=== PATIENT | female | born 1970 | race African-American/Black ===

== ENCOUNTER 2019-09-27 12:08 | Inpatient (IN) | payer OTHER ==
[2019-09-27 13:08] VITALS: BMI 17.6
--- NOTE | 2019-09-27 13:29 | HP ---
CIWA Score Nausea/Vomitin-Int. Nausea w/Dry Heave Muscle Tremors: 1-None Visible, but [place] Anxiety: 2 Agitation: 4-Moderately Restless Paroxysmal Sweats: 1-Minimal Palms Moist Orientation: 0-Oriented Tacttile Disturbances: 0-None Auditory Disturbances: 0-None Visual Disturbances: 0-None Headache: 2-Mild CIWA-Ar Total Score: 14 - Admission Criteria OASAS Guidelines: Admission for Medically Managed Detox: Requires at least one of the followin. CIWA greater than 12 2. Seizures within the past 24 hours 3. Delirium tremens within the past 24 hours 4. Hallucinations within the past 24 hours 5. Acute intervention needed for co occurring medical disorder 6. Acute intervention needed for co occurring psychiatric disorder 7. Severe withdrawal that cannot be handled at a lower level of care (continued vomiting, continued diarrhea, abnormal vital signs) requiring intravenous medication and/or fluids 8. Admitting History and Physical - Admission Chief Complaint: "I want to stop drinking." History of Present Illness: 48 year old female with history of detox and rehab at [facility] 3 months ago in 2019 but relapsed 3 days right after rehab. She is driking 10 beers per day, last drank at 7PM yesterday. Denies blackout or withdrawal seizures. She smokes 1/2 ppd ciggarettes since age 22. She admits to crack use daily at $100 daily. PMH: HTN just took meds now. Psurg: None except tubal ligation in 2013 Meds: Amlodipine 10mg daily and HCTZ 25 mg daily She is homeless and has poor support systems. Her risk of relapse is high and morbidity for continued drinking is high. History Source: Patient Limitations to Obtaining History: No Limitations - Past Medical History Cardiovascular: Yes: HTN - Past Surgical History Past Surgical History: Yes: None - Advance Directives Advance Directives: No: Living Will, Health Care Proxy, DNR - Smoking History Smoking history: Current every day smoker Have you smoked in the past 12 months: Yes Aproximately how many cigarettes per day: 10 - Alcohol/Substance Use Hx Alcohol Use: Yes (10 beers daily) Number of Drinks Daily: 10 History of Substance Use: reports: Cocaine Admission ROS [facility] - [facility] Allergies/Adverse Reactions: Allergies Allergy/AdvReac Type Severity Reaction Status Date / Time aspirin Allergy Nausea Verified 09/27/19 13:01 Patient History - Smoking Cessation Smoking history: Current every day smoker Have you smoked in the past 12 months: Yes Aproximately how many cigarettes per day: 10 Hx Chewing Tobacco Use: No Initiated information on smoking cessation: Yes 'Breaking Loose' booklet given: 09/27/19 - Substances abused Alcohol Substance route: Oral Frequency: Daily Amount used: 9 beers Age of first use: 21 Date of last use: 09/26/19 Cocaine Substance route: Smoking Frequency: Daily Amount used: $100 Age of first use: 27 Date of last use: 09/25/19 Admission Physical Exam [facility] - Vital Signs Vital Signs: Vital Signs - 24 hr 09/27/19 12:56 Temperature 97.3 F L Pulse Rate 56 L Respiratory 18 Rate Blood Pressure 160/102 H - Physical General Appearance: Yes: Mild Distress, Thin, Tremorous, Irritable HEENTM: Yes: EOMI, Hearing grossly Normal, Normal ENT Inspection, Normocephalic , Normal Voice, DENIS, Pharynx Normal, Tm's normal Respiratory: Yes: Chest Non-Tender, Lungs Clear, Normal Breath Sounds, No Respiratory Distress, No Accessory Muscle Use Neck: Yes: No masses,lesions,Nodules, Supple, Trachea in good position Breast: Yes: Breast Exam Deferred Cardiology: Yes: Regular Rhythm, Regular Rate, S1, S2 Abdominal: Yes: Normal Bowel Sounds, Non Tender, Flat, Soft Genitourinary: Yes: Within Normal Limits Back: Yes: Normal Inspection Musculoskeletal: Yes: full range of Motion, Gait Steady, Pelvis Stable Extremities: Yes: Normal Capillary Refill, Normal Inspection, Normal Range of Motion, Non-Tender Neurological: Yes: database developer II-XII NML intact, Fully Oriented, Alert, Motor Strength 5/5, Normal Mood/Affect, Normal Response Integumentary: Yes: Normal Color, Warm Lymphatic: Yes: Within Normal Limits - Diagnostic (1) Alcohol dependence with withdrawal Current Visit: Yes Status: Acute (2) Hypertension Current Visit: Yes Status: Acute Cleared for Admission [facility] - Detox or Rehab [facility] Level of Care: Medically Managed Detox Regimen/Protocol: Valium Claeared for Rehab Admission: No Screened but not Admitted - Documentation of Visit Screened but not Admitted: No Breathalyzer - Breathalyzer Breathalyzer: 0 (last used yesterday at 7 PM) Urine Drug Screen - Test Device Lot number: [id number] Expiration date: 07/20/21 - Control Is test valid?: Yes - Results Drug screen NEGATIVE: Yes Urine drug screen results: DANIKA-Cocaine Inpatient Rehab Admission - Rehab Decision to Admit Inpatient rehab admission?: No
[2019-09-27] MEDS ORDERED: BISMUTH SUBSALICYLATE 524 MG/30 ML UD PO PRN (13:33)
[2019-09-27] MEDS ORDERED: MELATONIN 5 MG TABLETS PO PRN (13:33)
[2019-09-27] MEDS ORDERED: MENTHOL/PHENOL 1 EACH UD MM PRN (13:33)
[2019-09-27] MEDS ORDERED: IBUPROFEN 400 MG TABLET (FP) PO PRN (13:33)
[2019-09-27] MEDS ORDERED: MAG HYDROX/AL HYDROX/SIMETH 30 ML UNIT-DOSE CUP PO PRN (13:33)
[2019-09-27] MEDS ORDERED: diazePAM 5 MG TABLET PO PRN (13:33)
[2019-09-27] MEDS ORDERED: MAGNESIUM HYDROX 2400MG/30ML ORAL SUSPENSION 30 ML CUP PO PRN (13:33)
[2019-09-27] MEDS ORDERED: ACETAMINOPHEN 325 MG TABLET (FP) PO PRN ×2 (13:33)
[2019-09-27] MEDS ORDERED: hydrOXYzine PAMOATE 25 MG CAPSULE (FP) PO PRN (13:33)
[2019-09-27] MEDS ORDERED: MAGNESIUM CITRATE 300 ML BOTTLE PO PRN (13:33)
[2019-09-27 17:46] LABS: HEMATOCRIT 31.5 % (32.4-45.2); HEMOGLOBIN 9.9 GM/dL (10.7-15.3); MCH 25.6 pg (25.7-33.7); MCHC 31.5 g/dl (32.0-36.0); MEAN CELL VOLUME 81.2 fl (80-96); MEAN PLT VOLUME 8.6 fl (7.5-11.1); PLATELET COUNT 298 K/MM3 (134-434); RBC 3.88 M/mm3 (3.60-5.2); WHITE BLOOD COUNT 3.5 K/mm3 (4.0-10.0)
[2019-09-27] MEDS: HYDROCHLOROTHIAZIDE 25 MG TABLET (FP) PO SCH (17:55)
[2019-09-27] MEDS: diazePAM 5 MG TABLET PO ONE (17:55)
[2019-09-27 17:56] LABS: ALBUMIN 2.7 g/dl (3.4-5.0); BILIRUBIN,TOTAL 0.2 mg/dL (0.2-1); CALCIUM 8.7 mg/dL (8.5-10.1); POTASSIUM 3.2 mmol/L (3.5-5.1); TOT PROT 6.3 g/dl (6.4-8.2)
[2019-09-27] MEDS: diazePAM 5 MG TABLET PO SCH ×2 (17:56→22:35)
[2019-09-27] MEDS: NICOTINE 7 MG/24 HOURS TOPICAL PATCH TD SCH (17:56)
[2019-09-27] MEDS: amLODIPine BESYLATE 10 MG TABLET (FP) PO SCH (17:56)
[2019-09-27] MEDS: THIAMINE HCL 100 MG TABLET (FP) PO SCH (22:36)
[2019-09-27] MEDS: METHOCARBAMOL 500 MG TABLET PO PRN (22:38)
[2019-09-28] MEDS: METHOCARBAMOL 500 MG TABLET PO PRN (05:26)
[2019-09-28] MEDS: diazePAM 5 MG TABLET PO SCH ×3 (05:27→22:39)
[2019-09-28] MEDS: amLODIPine BESYLATE 10 MG TABLET (FP) PO SCH (10:31)
[2019-09-28] MEDS: HYDROCHLOROTHIAZIDE 25 MG TABLET (FP) PO SCH (10:31)
[2019-09-28] MEDS: PRENATAL VITAMINS W/ FOLIC ACID TABLET (FP) PO SCH (10:31)
[2019-09-28] MEDS: NICOTINE 7 MG/24 HOURS TOPICAL PATCH TD SCH (10:31)
--- NOTE | 2019-09-28 14:14 | PN ---
S CIWA - CIWA Score Nausea/Vomitin-No Nausea/No Vomiting Muscle Tremors: None Anxiety: 3 Agitation: 1-Slight > Activity Paroxysmal Sweats: 3 Orientation: 0-Oriented Tacttile Disturbances: 0-None Auditory Disturbances: 0-None Visual Disturbances: 0-None Headache: 2-Mild CIWA-Ar Total Score: 9 S Progress Note (SOAP) Subjective: c/o sweats, anxiety, and headache. Objective: 09/28/19 14:13 Vital Signs 09/28/19 09/28/19 09/28/19 06:48 09:33 12:56 Temperature 98.5 F 98.4 F 98.9 F Pulse Rate 77 65 88 Respiratory 18 18 16 Rate Blood Pressure 148/94 131/75 134/86 Laboratory Last Values WBC 3.5 K/mm3 (4.0-10.0) L 09/27/19 13:45 RBC 3.88 M/mm3 (3.60-5.2) 09/27/19 13:45 Hgb 9.9 GM/dL (10.7-15.3) L 09/27/19 13:45 Hct 31.5 % (32.4-45.2) L 09/27/19 13:45 MCV 81.2 fl (80-96) 09/27/19 13:45 MCH 25.6 pg (25.7-33.7) L 09/27/19 13:45 MCHC 31.5 g/dl (32.0-36.0) L 09/27/19 13:45 RDW 19.0 % (11.6-15.6) H 09/27/19 13:45 Plt Count 298 K/MM3 (134-434) 09/27/19 13:45 MPV 8.6 fl (7.5-11.1) 09/27/19 13:45 Sodium 141 mmol/L (136-145) 09/27/19 13:45 Potassium 3.2 mmol/L (3.5-5.1) L 09/27/19 13:45 Chloride 106 mmol/L (98-107) 09/27/19 13:45 Carbon Dioxide 31 mmol/L (21-32) 09/27/19 13:45 Anion Gap 4 MMOL/L (8-16) L 09/27/19 13:45 BUN 8.0 mg/dL (7-18) 09/27/19 13:45 Creatinine 1.0 mg/dL (0.55-1.3) 09/27/19 13:45 Est GFR (CKD-EPI)AfAm 78.24 09/27/19 13:45 Est GFR (CKD-EPI)NonAf 67.51 09/27/19 13:45 Random Glucose 103 mg/dL (74-106) 09/27/19 13:45 Calcium 8.7 mg/dL (8.5-10.1) 09/27/19 13:45 Total Bilirubin 0.2 mg/dL (0.2-1) 09/27/19 13:45 AST 205 U/L (15-37) H 09/27/19 13:45 ALT 18 U/L (13-61) 09/27/19 13:45 Alkaline Phosphatase 61 U/L (45-117) 09/27/19 13:45 Total Protein 6.3 g/dl (6.4-8.2) L 09/27/19 13:45 Albumin 2.7 g/dl (3.4-5.0) L 09/27/19 13:45 RPR Titer Nonreactive (NONREACTIVE) 09/27/19 13:45 Labs noted. Assessment: 09/28/19 14:13 AOX3, in no respiratory distress. Full ROM, ambulating in the unit. Withdrawal symptoms. Plan: continue detox.
[2019-09-28] MEDS ORDERED: BENZOCAINE 20 % GEL TUBE MM PRN (20:49)
[2019-09-28] MEDS: IBUPROFEN 400 MG TABLET (FP) PO PRN (21:00)
[2019-09-28] MEDS: THIAMINE HCL 100 MG TABLET (FP) PO SCH (22:39)
[2019-09-29] MEDS: IBUPROFEN 400 MG TABLET (FP) PO PRN ×2 (04:31→18:41)
[2019-09-29] MEDS: diazePAM 5 MG TABLET PO SCH ×2 (06:16→17:44)
[2019-09-29] MEDS: HYDROCHLOROTHIAZIDE 25 MG TABLET (FP) PO SCH (10:26)
[2019-09-29] MEDS: amLODIPine BESYLATE 10 MG TABLET (FP) PO SCH (10:26)
[2019-09-29] MEDS: PRENATAL VITAMINS W/ FOLIC ACID TABLET (FP) PO SCH (10:26)
[2019-09-29] MEDS: NICOTINE 7 MG/24 HOURS TOPICAL PATCH TD SCH (10:27)
--- NOTE | 2019-09-29 11:37 | PN ---
S CIWA - CIWA Score Nausea/Vomitin-No Nausea/No Vomiting Muscle Tremors: 3 Anxiety: 2 Agitation: 1-Slight > Activity Paroxysmal Sweats: 2 Orientation: 0-Oriented Tacttile Disturbances: 0-None Auditory Disturbances: 0-None Visual Disturbances: 0-None Headache: 0-None Present CIWA-Ar Total Score: 8 BHS Progress Note (SOAP) Subjective: 48 years old female admitted on 09/27/19 for alcohol withdrawal sx management treating with valium detox regiment feeling ok today less anxious resting in bed limited conversation with staff prefers to stay in bed Objective: 09/29/19 11:39 Vital Signs Temperature 98.9 F 09/29/19 09:00 Pulse Rate 76 09/29/19 09:00 Respiratory Rate 16 09/29/19 09:00 Blood Pressure 137/86 09/29/19 09:00 O2 Sat by Pulse Oximetry (%) Laboratory Last Values WBC 3.5 K/mm3 (4.0-10.0) L 09/27/19 13:45 RBC 3.88 M/mm3 (3.60-5.2) 09/27/19 13:45 Hgb 9.9 GM/dL (10.7-15.3) L 09/27/19 13:45 Hct 31.5 % (32.4-45.2) L 09/27/19 13:45 MCV 81.2 fl (80-96) 09/27/19 13:45 MCH 25.6 pg (25.7-33.7) L 09/27/19 13:45 MCHC 31.5 g/dl (32.0-36.0) L 09/27/19 13:45 RDW 19.0 % (11.6-15.6) H 09/27/19 13:45 Plt Count 298 K/MM3 (134-434) 09/27/19 13:45 MPV 8.6 fl (7.5-11.1) 09/27/19 13:45 Sodium 141 mmol/L (136-145) 09/27/19 13:45 Potassium 3.2 mmol/L (3.5-5.1) L 09/27/19 13:45 Chloride 106 mmol/L (98-107) 09/27/19 13:45 Carbon Dioxide 31 mmol/L (21-32) 09/27/19 13:45 Anion Gap 4 MMOL/L (8-16) L 09/27/19 13:45 BUN 8.0 mg/dL (7-18) 09/27/19 13:45 Creatinine 1.0 mg/dL (0.55-1.3) 09/27/19 13:45 Est GFR (CKD-EPI)AfAm 78.24 09/27/19 13:45 Est GFR (CKD-EPI)NonAf 67.51 09/27/19 13:45 Random Glucose 103 mg/dL (74-106) 09/27/19 13:45 Calcium 8.7 mg/dL (8.5-10.1) 09/27/19 13:45 Total Bilirubin 0.2 mg/dL (0.2-1) 09/27/19 13:45 AST 205 U/L (15-37) H 09/27/19 13:45 ALT 18 U/L (13-61) 09/27/19 13:45 Alkaline Phosphatase 61 U/L (45-117) 09/27/19 13:45 Total Protein 6.3 g/dl (6.4-8.2) L 09/27/19 13:45 Albumin 2.7 g/dl (3.4-5.0) L 09/27/19 13:45 RPR Titer Nonreactive (NONREACTIVE) 09/27/19 13:45 lab noted low K+ ast elevation Assessment: 09/29/19 11:43 alcohol withdrawal K+ 40meq + 20meq Plan: valium regiment repeat ast repeat K+
[2019-09-29] MEDS ORDERED: POTASSIUM CHLORIDE ORAL LIQUID 20 MEQ/15 ML PO ONE ×3 (11:40→19:00)
[2019-09-29] MEDS: THIAMINE HCL 100 MG TABLET (FP) PO SCH (22:15)
[2019-09-30] MEDS: diazePAM 5 MG TABLET PO ONE (06:00)
[2019-09-30 09:17] VITALS: BP 122/76; PULSE 79; TEMP 98.8
[2019-09-30] MEDS: IBUPROFEN 400 MG TABLET (FP) PO PRN (10:24)
[2019-09-30] MEDS: amLODIPine BESYLATE 10 MG TABLET (FP) PO SCH (10:24)
[2019-09-30] MEDS: PRENATAL VITAMINS W/ FOLIC ACID TABLET (FP) PO SCH (10:24)
[2019-09-30] MEDS: NICOTINE 7 MG/24 HOURS TOPICAL PATCH TD SCH (10:24)
[2019-09-30] MEDS: HYDROCHLOROTHIAZIDE 25 MG TABLET (FP) PO SCH (10:24)
[2019-09-30 13:09] LABS: POTASSIUM 3.9 mmol/L (3.5-5.1)
--- NOTE | 2019-09-30 13:12 | DS ---
[facility] Detox Discharge Summary Admission Date: 09/27/19 Discharge Date: 09/30/19 - History Present History: Alcohol Dependence Additional Comments: 48 years old female admitted on 09/27/19 for alcohol withdrawal sx management treated with valium detox regiment Mrs Jolley has completed the valium regiment and tolerated well alert oriented x 3 speech clearly coherently ambulating steady gait patient was doing well through out the detox that Mrs Jolley is determined to maintain sober to "get my kids back" respiratory clear lungs bilaterally on auscultation extremities full range of motion skin warm and dry Pertinent Past History: time for discharge: 28 minutes - Physical Exam Results Vital Signs: Vital Signs Temperature 98.8 F 09/30/19 08:43 Pulse Rate 79 09/30/19 08:43 Respiratory Rate 18 09/30/19 08:43 Blood Pressure 122/76 09/30/19 08:43 O2 Sat by Pulse Oximetry (%) Pertinent Admission Physical Exam Findings: alcohol withdrawal Laboratory Last Values WBC 3.5 K/mm3 (4.0-10.0) L 09/27/19 13:45 RBC 3.88 M/mm3 (3.60-5.2) 09/27/19 13:45 Hgb 9.9 GM/dL (10.7-15.3) L 09/27/19 13:45 Hct 31.5 % (32.4-45.2) L 09/27/19 13:45 MCV 81.2 fl (80-96) 09/27/19 13:45 MCH 25.6 pg (25.7-33.7) L 09/27/19 13:45 MCHC 31.5 g/dl (32.0-36.0) L 09/27/19 13:45 RDW 19.0 % (11.6-15.6) H 09/27/19 13:45 Plt Count 298 K/MM3 (134-434) 09/27/19 13:45 MPV 8.6 fl (7.5-11.1) 09/27/19 13:45 Sodium 141 mmol/L (136-145) 09/27/19 13:45 Potassium 3.9 mmol/L (3.5-5.1) 09/30/19 08:15 Chloride 106 mmol/L (98-107) 09/27/19 13:45 Carbon Dioxide 31 mmol/L (21-32) 09/27/19 13:45 Anion Gap 4 MMOL/L (8-16) L 09/27/19 13:45 BUN 8.0 mg/dL (7-18) 09/27/19 13:45 Creatinine 1.0 mg/dL (0.55-1.3) 09/27/19 13:45 Est GFR (CKD-EPI)AfAm 78.24 09/27/19 13:45 Est GFR (CKD-EPI)NonAf 67.51 09/27/19 13:45 Random Glucose 103 mg/dL (74-106) 09/27/19 13:45 Calcium 8.7 mg/dL (8.5-10.1) 09/27/19 13:45 Total Bilirubin 0.2 mg/dL (0.2-1) 09/27/19 13:45 AST 178 U/L (15-37) H 09/30/19 08:15 ALT 18 U/L (13-61) 09/27/19 13:45 Alkaline Phosphatase 61 U/L (45-117) 09/27/19 13:45 Total Protein 6.3 g/dl (6.4-8.2) L 09/27/19 13:45 Albumin 2.7 g/dl (3.4-5.0) L 09/27/19 13:45 POC Urine HCG, Qual Negative 09/27/19 13:49 RPR Titer Nonreactive (NONREACTIVE) 09/27/19 13:45 HIV 1&2 Antibody Screen Cancelled 09/27/19 13:45 HIV P24 Antigen Cancelled 09/27/19 13:45 lab noted patient has court date tomorrow and agrees to returning to [facility] admission after "two" court days" - Treatment Hospital Course: Detox Protocol Followed, Detoxed Safely, Responded well, Discharged Condition Good, Rehab Referral Accepted Patient has Accepted a Rehab Referral to: counseling services - Medication Discharge Medications: Ambulatory Orders Amlodipine Besylate [Norvasc -] 10 mg PO DAILY 09/27/19 Hydrochlorothiazide [Hctz -] 25 mg PO DAILY 09/27/19 - Diagnosis (1) Alcohol dependence with withdrawal Current Visit: Yes Status: Acute Qualifiers: Complication of substance-induced condition: uncomplicated Qualified Code(s ): F10.230 - Alcohol dependence with withdrawal, uncomplicated (2) Hypertension Current Visit: Yes Status: Chronic Qualifiers: Hypertension type: essential hypertension Qualified Code(s): I10 - Essential (primary) hypertension - AMA Did Patient Leave Against Medical Advice: No CIWA Score - CIWA Score Nausea/Vomitin-No Nausea/No Vomiting Muscle Tremors: 2 Anxiety: 2 Agitation: 0-Normal Activity Paroxysmal Sweats: 1-Minimal Palms Moist Orientation: 0-Oriented Tacttile Disturbances: 0-None Auditory Disturbances: 0-None Visual Disturbances: 0-None Headache: 0-None Present CIWA-Ar Total Score: 5
== END 2019-09-30 11:21 | disposition home or self-care (01) | DRG 775 ==
LOC: YASAS 12:08 → Y3N 13:36
PROVIDERS: ADMIT Allergy & Immunology; ATTEND Allergy & Immunology
PROC: HZ2ZZZZ Detoxification Services for Substance Abuse Treatment (ICD-10-PCS; principal; 2019-09-27)
DX: F10.230 Alcohol dependence with withdrawal, uncomplicated (principal); F17.210 Nicotine dependence, cigarettes, uncomplicated; I10 Essential (primary) hypertension; R74.0 Nonspecific elevation of levels of transaminase and lactic acid dehydrogenase [LDH]; E87.6 Hypokalemia; Z88.6 Allergy status to analgesic agent; Z59.0 Homelessness
CPT/HCPCS: 36415; 80053; 81025; 84132; 84450; 85027; 86593; 87389